=== PATIENT | female | born 1960 | race Two or more races ===

== ENCOUNTER 2024-07-24 07:52 | Emergency (ER) | payer MEDICARE, MEDICAID, SELFPAY ==
[2024-07-24 08:08] VITALS: BP 141/95; PULSE 88; RESP 22; TEMP 36.4; O2SAT 98; BMI 32.8
--- NOTE | 2024-07-24 08:14 | XR_ITS ---
Examination: PA lateral chest 2 views Technique: Upright PA lateral chest 2 views Exam date and time: July 24, 2024 0842 hrs. Comparison January 25, 2024 Indications: Difficulty breathing beginning 3 days ago. Findings: Normal heart size No pneumonia or pulmonary edema The osseous structures are intact Impression: No pneumonia or pulmonary edema
--- NOTE | 2024-07-24 08:26 | PD.EDRME ---
Rapid Medical Screening Exam RME Arrival date/time: 07/24/24 07:52 64-year-old female with history of asthma presents the emergency department complains of shortness of breath patient has history of asthma Currently patient is wheezing Chief Complaint: Shortness of Breath/Dyspnea Vital signs: Vital Signs Temperature 97.6 F 07/24/24 08:08 Pulse Rate 88 07/24/24 08:08 Respiratory Rate 22 H 07/24/24 08:08 Blood Pressure 141/95 H 07/24/24 08:08 Pulse Oximetry (%) 98 07/24/24 08:08 Oxygen Delivery Method Room Air 07/24/24 08:08
[2024-07-24] MEDS: DEXAMETHASONE SOD PHOS INJ 10 MG/ML VIAL PO (08:32)
[2024-07-24] MEDS: ALBUTEROL/IPRATROPIUM (Duoneb) RT SOL 3 ML NEBU INH (08:57)
[2024-07-24 08:58] VITALS: PULSE 70; RESP 19; O2SAT 100
[2024-07-24 09:24] LABS: Basophils # (Auto) 0.1 Thou/mm3 (0.0-0.2); Basophils % (Auto) 1 % (0-2.5); Eosinophils # (Auto) 0.4 Thou/mm3 (0.0-0.5); Eosinophils % (Auto) 6 % (0-10); Hematocrit 43.5 % (36.0-46.0); Hemoglobin 15.1 g/dL (12.0-16.0); Immature Granulocytes % (Auto) 0 % (0-0); Immature Granulocytes Auto 0.01 Thou/mm3 (0.00-0.00); Lymphocytes # (Auto) 2.4 Thou/mm3 (1.0-4.8); Lymphocytes % (Auto) 32 % (10-50); Mean Corpuscular HGB Conc 34.7 g/dl (31.0-37.0); Mean Corpuscular Hemoglobin 30.4 pg (25.0-35.0); Mean Corpuscular Volume 88 fL (80-100); Monocytes # (Auto) 0.6 Thou/mm3 (0.0-0.8); Monocytes % (Auto) 8 % (0-12); Neutrophils # (Auto) 3.9 Thou/mm3 (1.8-7.7); Neutrophils % (Auto) 53 % (37-80); Nucleated Red Blood Cell % 0 /100 WBC (0); Platelet Count 199 Thou/mm3 (140-440); RDW Standard Deviation 39.3 fL (36.4-46.3); Red Blood Count 4.96 Miln/mm3 (4.00-5.20); White Blood Count 7.4 Thou/mm3 (3.6-11.0)
[2024-07-24 09:51] LABS: B-Type Natriuretic Peptide < 20 pg/mL (0-100)
[2024-07-24 09:52] LABS: Alanine Aminotransferase 29 U/L (10-49); Albumin, Serum 4.5 gm/dL (3.4-4.8); Albumin/Globulin Ratio 1.9 (1.2-2.2); Alkaline Phosphatase 79 U/L (46-116); Anion Gap 7 (7-16); Aspartate Amino Transferase 16 U/L (0-34); BUN/Creatinine Ratio 15 Ratio (12-20); Blood Urea Nitrogen 12 mg/dL (9-23); Calcium 9.4 mg/dL (8.3-10.6); Calcium (Corrected) 9.4 mg/dL (8.5-10.1); Carbon Dioxide 26.6 mMol/L (20.0-31.0); Chloride 104 mMol/L (98-107); Creatinine (Component) 0.8 mg/dL (0.6-1.3); Estimated Creatinine Clearance 74.8 mL/min (>60); Globulin 2.4 gm/dL (2.3-3.5); Glucose 113 mg/dL (74-106); Osmolality,Calculated 276 (275-295); Potassium 4.1 mMol/L (3.4-5.1); Sodium 138 mMol/L (136-145); Total Protein 6.9 gm/dL (5.7-8.2); Troponin I < 0.020 ng/mL (0.0-0.045); eGFR > 60 See Note
--- NOTE | 2024-07-24 10:04 | EDNOTE_ITS ---
Upper Respiratory Inf. RME/HPI General Chief Complaint: Shortness of Breath/Dyspnea Stated Complaint: HARD TIME BREATHING , COUGH X 1MNTH; HX ASTHMA Time Seen by Provider: 07/24/24 10:03 Arrival date/time: 07/24/24 07:52 64-year-old female with history of asthma presents the emergency department complains of shortness of breath patient has history of asthma Currently patient is wheezing Limitations: no limitations RME / HPI RME / HPI Narrative: 07/24/24 07:52 64-year-old female with history of asthma presents the emergency department complains of shortness of breath patient has history of asthma Currently patient is wheezing Related Data Home Medications ?Medication ?Instructions ?Recorded ?Confirmed gabapentin 800 mg tablet 800 mg PO TID 07/12/20 05/14/21 losartan 100 1 tab PO QDAY 07/12/20 05/14/21 mg-hydrochlorothiazide 25 mg tablet medroxyprogesterone 2.5 mg tablet 5 mg PO QDAY 07/12/20 05/14/21 trazodone 150 mg tablet 150 mg PO HS 07/12/20 05/14/21 cyclobenzaprine 10 mg tablet 10 mg PO QDAY 05/14/21 05/14/21 Previous Rx's ?Medication ?Instructions ?Recorded ibuprofen 800 mg tablet 800 mg PO TID PRN pain #30 tabs 10/26/20 guaifenesin 100 mg/5 mL oral liquid 200 mg (10 mL) PO Q4H PRN cough 01/25/24 #473 mL benzonatate 100 mg capsule 100 mg PO TID #14 caps 07/24/24 prednisone 10 mg tablet 30 mg (3 x 10 mg) PO BID 3 days 07/24/24 #18 tabs Allergies Allergy/AdvReac Type Severity Reaction Status Date / Time No Known Allergies Allergy Verified 07/24/24 07:54 Review of Systems Review of Systems Systems Reviewed: All systems reviewed, normal except as documented Constitutional Constitutional: Reports system reviewed and no additional complaints, except as documented, Denies fever(s) and Denies headache(s) Eyes Eyes: Reports system reviewed and no additional complaints, except as documented and Denies blurry vision ENT Ears, Nose, Mouth, and Throat: Reports system reviewed and no additional complaints, except as documented, Denies headache(s), Denies nasal congestion and Denies nasal discharge Cardiovascular Cardiovascular: Reports system reviewed and no additional complaints, except as documented, Denies chest pain and Denies dyspnea Respiratory Respiratory: Reports system reviewed and no additional complaints, except as documented, Reports chest congestion, Reports cough, Denies dyspnea and Reports wheezing Gastrointestinal Gastrointestinal: Reports system reviewed and no additional complaints, except as documented and Denies abdominal pain Integumentary/Breasts Skin/Breast: Reports system reviewed and no additional complaints, except as documented and Denies rash Neurologic Neurologic: Reports system reviewed and no additional complaints, except as documented, Reports as per HPI and Denies headache(s) Allergic/Immunologic Allergic/Immunologic: Reports wheezing Past Medical History Past Medical History NEUROLOGIC: Negative Neurological Disorders or Seizures CARDIAC: Positive Cardiac Disorders and Hypertension; Negative Congestive Heart Failure RESPIRATORY: Positive Asthma; Negative Chronic Obstructive Pulmonary Disease (COPD) GASTROINTESTINAL: Positive Gastrointestinal Disorders, Hepatitis and Gastroesophageal Reflux Disease GENITOURINARY: Negative Genitourinary Disorders or Renal Disease REPRODUCTIVE: Positive Previous Pregnancies MUSCULOSKELETAL: Positive Musculoskeletal Disorders, Arthritis and Fibromyalgia; Negative Carpal Tunnel Syndrome ENDOCRINE: Negative Endocrine Disorders, Diabetes Mellitus Type 1 or Diabetes Mellitus Type 2 HEMATOLOGIC: Negative Blood Disorders PSYCHO/SOCIAL: Positive Depression and Anxiety OTHER HISTORY: Positive Autoimmune Disease, Shingles and Chicken Pox; Negative Falls, Blood Transfusions, Blood Transfusion Reaction, Anesthesia Reactions, Organ Transplant, MRSA, VRSA or Cancer Family History FAMILY HISTORY: Positive Family Psychiatric Problems, Family Respiratory Disorders, Family Cardiac Disorders, Family Gastrointestinal Problems and Family Surgery; Negative Family Cancer or Family Anesthesia Reaction Surgical History SURGICAL: Negative Cardiac Surgery, Endocrine Surgery, Ear Surgery, Eye Surgery, Throat Surgery, Abdominal Surgery, Joint Replacement, Amputation, Open Reduction Internal Fixation, Arthroscopy, Neurologic Surgery, Tubal Ligation or Organ Transplant Social History SMOKING STATUS: Light (< 1 pack/day) ED Exam General Limitations: Present no limitations General appearance: Present alert and in no apparent distress Head Head exam: Present atraumatic, normocephalic and normal inspection Eye Eye exam: Present normal appearance, PERRL and EOMI; Absent conjunctival injection ENT ENT exam: Present normal exam, normal oropharynx and mucous membranes moist Neck Neck exam: Present normal inspection, full ROM and trachea midline Chest Chest inspection: Present normal inspection and symmetric chest wall rise Respiratory Respiratory exam: Present respiratory distress and wheezes; Absent stridor, accessory muscle use or prolonged expiratory phase Cardiovascular Cardiovascular exam: Present regular rate, normal rhythm and normal heart sounds Abdominal Exam Abdominal exam: Present soft and normal bowel sounds Extremities Exam Extremities exam: Present normal inspection and full ROM Back Exam Back exam: Present normal inspection and full ROM Neurological Exam Neurological exam: Present alert, oriented X3 and CN II-XII intact Psychiatric Psychiatric exam: Present normal affect and normal mood Skin Skin exam: Present warm, dry, intact and normal color Course Quality Measures none Orders Category Date Time Status EKG (ED ONLY) *Do not use* NOW Care 07/24/24 08:14 Completed EKG (ED Only) Stat Exams 07/24/24 08:14 Ordered XR chest 2V Stat Exams 07/24/24 08:14 Completed BNP [B-Type Natriuretic Peptide] Stat Lab 07/24/24 09:12 Completed CBC Stat Lab 07/24/24 09:12 Completed Comprehensive Metabolic Panel Stat Lab 07/24/24 09:12 Completed Troponin I Stat Lab 07/24/24 09:12 Completed Albuterol/Ipratr Rt Chrissy [Duoneb Rt Chrissy] Med 07/24/24 08:14 Discontinued 3 ml INH X1 ONE Dexamethasone Inj [Decadron Inj] Med 07/24/24 08:14 Discontinued 10 mg PO X1 ONE Vital Signs Vital signs: Vital Signs Temperature 97.6 F 07/24/24 08:08 Pulse Rate 88 07/24/24 08:08 Respiratory Rate 22 H 07/24/24 08:08 Blood Pressure 141/95 H 07/24/24 08:08 Pulse Oximetry (%) 98 07/24/24 08:08 Oxygen Delivery Method Room Air 07/24/24 08:08 O2 saturation 98% room air within normal limits Procedures -ED EKG Interpretation #1: Date of EK07/24/24 Time of EK:21 Rate: 71 Interpretation: Interpreted by me EKG Impression: Normal sinus rhythm, No acute ST-T changes, PVCs, No ectopy, No ischemic changes, Normal QRS and Normal intervals Upper Respiratory Infection MDM Narrative MDM Narrative:: 64-year-old female with history of asthma presents the emergency department complains of shortness of breath patient has history of asthma Currently patient is wheezing Lab work chest x-ray EKG obtained no acute emergent findings noted At time reevaluation patient no longer has any wheezing patient reports her symptoms have improved and would like to go home Patient discharged home in no distress to follow-up with primary care doctor in the next 24 to 48 hours and for any worsening symptoms to return to the ER immediately Patient data External records reviewed:: [facility] previous records Clinical information provided by:: patient Social determinants that could affect healthcare access:: none Patient has the following chronic illnesses:: See history How is presenting disease/condition affected by chronic disease/condition?: exacerbated by Evaluation data The following diagnostics were reviewed and interpreted by me:: lab results, radiology exam(s) and EKG tracing(s) Lab and/or radiology exams considered but not ordered:: Labs and radiology, EKG obtained Interpretation Summary: Reviewed by me Medications / Prescriptions Medications or Prescriptions considered but not ordered:: Given Medication administrations:: Medication Administration History Discontinued Medications Albuterol/Ipratropium (Albuterol/Ipratropium (Duoneb) Rt Chrissy 3 Ml Nebu) 3 ml INH X1 ONE Stop: 07/24/24 08:15 Last Admin: 07/24/24 08:57 Dose: 3 ml Documented By: DARIN Dexamethasone Sodium Phosphate (Dexamethasone Sod Phos Inj 10 Mg/Ml Vial) 10 mg PO X1 ONE Stop: 07/24/24 08:15 Last Admin: 07/24/24 08:32 Dose: 10 mg Documented By: ANITRA Comments: per provider, OK TO GIVE PO. Given Consultations Consultation(s) initiated? (list below): No Diagnosis Upper Respiratory Differential Diagnosis: upper respiratory infection, sinusitis and viral infection Most likely diagnosis given after review of the tests above:: URI Admission Indicated Admission indicated?: not indicated Admission Request Was there a request for admission?: No Disposition Plan Disposition Plan: Discharge Discharge Attestation Discharge Attestation: The patient and all family members were given an opportunity to ask questions and understood the discharge instructions. Discharge instructions specifically effects, indications for sooner follow up or return to the emergency department, and the expected course of current diagnosis. Patient condition: Stable Discharge Plan Plan Patient Disposition: HOME (Self Care) Disposition Comment: Stable Prescriptions/Referrals Prescriptions/Med Rec: New prednisone 10 mg tablet 30 mg PO BID 3 Days Qty: 18 0RF benzonatate 100 mg capsule 100 mg PO TID Qty: 14 0RF No Action medroxyprogesterone 2.5 mg Tablet 5 mg PO QDAY losartan-hydrochlorothiazide 100-25 mg Tablet 1 tab PO QDAY gabapentin 800 mg Tablet 800 mg PO TID trazodone 150 mg Tablet 150 mg PO HS ibuprofen 800 mg tablet 800 mg PO TID PRN (Reason: pain) Qty: 30 0RF cyclobenzaprine 10 mg tablet 10 mg PO QDAY Patient Comments: TAKE 1 TABLET BY MOUTH AT BEDTIME NEEDED TWICE A DAY guaifenesin 100 mg/5 mL liquid 200 mg PO Q4H PRN (Reason: cough) Qty: 473 0RF Referrals: Safia Nelson PA-C [Primary Care Provider] - In 1 week Problem List Clinical Impression: Asthma with exacerbation Patient/Caregiver Discharge Instructions Education Materials: Asthma Additional Instructions: Please follow up with your primary care doctor in the next 24-48hrs for any worsening symptoms return here immediately Print Language: Danish Stand Alone Forms: [employer] Award Info., Patient Portal Info Letter PA/MARY Supervising Physician VALARIE/MARY Supervising Physician: Dr abarca
== END 2024-07-24 10:13 | disposition home or self-care (01) ==
PROVIDERS: Nurse Practitioner Primary Care; Emergency Provider Emergency Medicine; PCP Physician Assistant
DX: J45.901 Unspecified asthma with (acute) exacerbation (principal); I49.1 Atrial premature depolarization; F17.210 Nicotine dependence, cigarettes, uncomplicated; I10 Essential (primary) hypertension
CPT/HCPCS: 36415; 71046; 80053; 83880; 84484; 85025; 93005; 94640; 99283; A9270; J1100

== ENCOUNTER 2024-08-26 10:30 | Emergency (ER) | payer MEDICARE, MEDICAID, SELFPAY ==
[2024-08-26 10:41] VITALS: BP 152/93; PULSE 81; RESP 25; TEMP 36.7; O2SAT 96; BMI 33.7
--- NOTE | 2024-08-26 10:49 | EDNOTE_ITS ---
ED SOB =RME/HPI General Chief Complaint: Shortness of Breath/Dyspnea Stated Complaint: SOB X 2 months Time Seen by Provider: 08/26/24 10:52 Source: patient Arrival date/time: 08/26/24 10:30 64-year-old female with a history of asthma presents to the emergency room with a chief complaint of shortness of breath and difficulty breathing x 2 months. Patient states that for the last 2 days her symptoms have progressively gotten worse. Patient had a breathing treatment this morning at 6 AM. Mode of arrival: ambulatory Limitations: no limitations Related Data Home Medications ?Medication ?Instructions ?Recorded ?Confirmed gabapentin 800 mg tablet 800 mg PO TID 07/12/2005/14 losartan 100 1 tab PO QDAY 07/12/2005/14 mg-hydrochlorothiazide 25 mg tablet medroxyprogesterone 2.5 mg tablet 5 mg PO QDAY 1 05/14/21 trazodone 150 mg tablet 150 mg PO HS 07/12/20 cyclobenzaprine 10 mg tablet 10 mg PO QDAY 05/14/21 Previous Rx's ?Medication ?Instructions ?Recorded ibuprofen 800 mg tablet 800 mg PO TID PRN pain #30 t abs 10/26/20 guaifenesin 100 mg/5 mL oral liquid 200 mg (10 mL) PO Q4H PRN cough 01/25/24 #473 mL benzonatate 100 mg capsule 100 mg PO TID #14 caps 06/30 12/21 acetaminophen 325 mg capsule 650 mg (2 x 325 mg) PO QI D PRN 08/26/24 fever or pain 7 days #30 caps albuterol sulfate 90 mcg/actuation 2 inh inhalation Q6 H PRN shortness 08/26/24 breath activated powder inhaler of breath or wheezing #1 ea benzonatate 100 mg capsule 100 mg PO BID PRN cough #14 caps 08/26/24 Allergies Allergy/AdvReac Type Severity Reaction Status Date / Time No Known Allergies Allergy Verified 08/26/24 10:33 Review of Systems Review of Systems Systems Reviewed: All systems reviewed, normal except as documented Constitutional Constitutional: Reports system reviewed and no additional complaints, except as documented, Denies fatigue, Denies fever(s), Denies headache(s) and Denies weakness Eyes Eyes: Reports system reviewed and no additional complaints, except as documented, Denies blurry vision and Denies change in vision ENT Ears, Nose, Mouth, and Throat: Reports system reviewed and no additional complaints, except as documented, Denies otalgia, Denies headache(s), Denies nasal congestion, Denies throat swelling and Denies vertigo Cardiovascular Cardiovascular: Reports system reviewed and no additional complaints, except as documented, Denies chest pain, Reports dyspnea and Denies dyspnea on exertion Respiratory Respiratory: Reports system reviewed and no additional complaints, except as documented, Reports chest congestion, Reports cough, Reports dyspnea, Denies dyspnea on exertion and Reports wheezing Gastrointestinal Gastrointestinal: Reports system reviewed and no additional complaints, except as documented, Denies abdominal pain, Denies cramping, Denies nausea and Denies vomiting Genitourinary Genitourinary: Reports system reviewed and no additional complaints, except as documented Musculoskeletal Musculoskeletal: Reports system reviewed and no additional complaints, except as documented and Denies back pain Integumentary/Breasts Skin/Breast: Reports system reviewed and no additional complaints, except as documented and Denies wounds Neurologic Neurologic: Reports system reviewed and no additional complaints, except as docu mented, Denies confusion, Denies headache(s), Denies lack of coordination, Denies vertigo and Denies weakness Psychiatric Psychiatric: Reports system reviewed and no additional complaints, except as documented, Denies anxiety, Denies confusion, Denies depression, Denies paranoia, Denies suicidal ideation and Denies tactile hallucinations Endocrine Endocrine: Reports system reviewed and no additional complaints, except as documented and Denies fatigue Hematologic/Lymphatic Hematologic/Lymphatic: Reports system reviewed and no additional complaints, except as documented and Denies lymphadenopathy Allergic/Immunologic Allergic/Immunologic: Reports system reviewed and no additional complaints, except as documented, Denies throat swelling, Denies urticaria and Reports wheezing Past Medical History Past Medical History NEUROLOGIC: Negative Neurological Disorders or Seizures CARDIAC: Positive Cardiac Disorders and Hypertension; Negative Congestive Heart Failure RESPIRATORY: Positive Asthma; Negative Chronic Obstructive Pulmonary Disease (COPD) GASTROINTESTINAL: Positive Gastrointestinal Disorders, Hepatitis and Gastroesophageal Reflux Disease GENITOURINARY: Negative Genitourinary Disorders or Renal Disease REPRODUCTIVE: Positive Previous Pregnancies MUSCULOSKELETAL: Positive Musculoskeletal Disorders, Arthritis and Fibromyalgia; Negative Carpal Tunnel Syndrome ENDOCRINE: Negative Endocrine Disorders, Diabetes Mellitus Type 1 or Diabetes Mellitus Type 2 HEMATOLOGIC: Negative Blood Disorders PSYCHO/SOCIAL: Positive Depression and Anxiety OTHER HISTORY: Positive Autoimmune Disease, Shingles and Chicken Pox; Negative Falls, Blood Transfusions, Blood Transfusion Reaction, Anesthesia Reactions, Organ Transplant, MRSA, VRSA or Cancer Family History FAMILY HISTORY: Positive Family Psychiatric Problems, Family Respiratory Disorders, Family Cardiac Disorders, Family Gastrointestinal Problems and Family Surgery; Negative Family Cancer or Family Anesthesia Reaction Surgical History SURGICAL: Negative Cardiac Surgery, Endocrine Surgery, Ear Surgery, Eye Surgery, Throat Surgery, Abdominal Surgery, Joint Replacement, Amputation, Open Reduction Internal Fixation, Arthroscopy, Neurologic Surgery, Tubal Ligation or Organ Transplant Social History SMOKING STATUS: Former smoker ED Exam General Limitations: Present no limitations General appearance: Present alert and in no apparent distress Head Head exam: Present atraumatic Eye Eye exam: Present normal appearance, PERRL and EOMI ENT ENT exam: Present normal exam, normal oropharynx and mucous membranes moist Neck Neck exam: Present normal inspection, full ROM and trachea midline Chest Chest inspection: Present normal inspection and symmetric chest wall rise Respiratory Respiratory exam: Present normal lung sounds bilaterally and wheezes; Absent respiratory distress, stridor, accessory muscle use or prolonged expiratory phase Expanded Respiratory Exam Location: Left: wheezes, Right: wheezes and Upper: wheezes Cardiovascular Cardiovascular exam: Present regular rate, normal rhythm and normal heart sounds Abdominal Exam Abdominal exam: Present soft and normal bowel sounds Extremities Exam Extremities exam: Present normal inspection and full ROM Back Exam Back exam: Present normal inspection and full ROM Neurological Exam Neurological exam: Present alert, oriented X3 and CN II-XII intact Psychiatric Psychiatric exam: Present normal affect and normal mood Skin Skin exam: Present warm, dry, intact and normal color Course Quality Measures none Orders Category Date Time Status Bedside COVID-19 Antigen Test NOW Care 08/26/24 10:49 Active Bedside Influenza A&B Antigen Test NOW Care 08/26/24 10:49 Completed XR chest 2V Stat Exams 08/26/24 10:49 Completed Albuterol/Ipratr Rt Chrissy [Duoneb Rt Chrissy] Med 08/26/24 10:49 Discontinued 3 ml INH X1 ONE Dexamethasone Inj [Decadron Inj] Med 08/26/24 10:49 Discontinued 10 mg PO X1 ONE Vital Signs Vital signs: Vital Signs Temperature 98.0 F 08/26/24 10:41 Pulse Rate 81 08/26/24 10:41 Respiratory Rate 25 H 08/26/24 10:41 Blood Pressure 152/93 H 08/26/24 10:41 Pulse Oximetry (%) 96 08/26/24 10:41 Oxygen Delivery Method Room Air 08/26/24 10:41 O2 saturation 96% on room air Shortness of Breath / Dyspnea MDM Narrative MDM Narrative:: 64-year-old female with a history of asthma presents to the emergency room with a chief complaint of shortness of breath and difficulty breathing x 2 months. Patient states that for the last 2 days her symptoms have progressively gotten worse. Patient had a breathing treatment this morning at 6 AM. Patient is hemodynamically stable. She is nontachycardic afebrile and O2 saturation is 96% on room air Physical examination shows bilateral upper lobe wheezing. Patient tested positive for influenza A Patient was educated to follow-up with primary care provider and return to the emergency room for any evidence of worsening signs or symptoms Patient data External records reviewed:: [facility] previous records Clinical information provided by:: patient Social determinants that could affect healthcare access:: none Patient has the following chronic illnesses:: Asthma How is presenting disease/condition affected by chronic disease/condition?: exacerbated by Evaluation data The following diagnostics were reviewed and interpreted by me:: lab results and radiology exam(s) Lab and/or radiology exams considered but not ordered:: Labs and radiology exams considered and ordered Interpretation Summary: Chest x-ray-no pneumonic infiltrates Medications / Prescriptions Medications or Prescriptions considered but not ordered:: Medication given Medication administrations:: Medication Administration History Discontinued Medications Albuterol/Ipratropium (Albuterol/Ipratropium (Duoneb) Rt Chrissy 3 Ml Nebu) 3 ml INH X1 ONE Stop: 08/26/24 10:50 Last Admin: 08/26/24 11:21 Dose: 3 ml Documented By: BJ Dexamethasone Sodium Phosphate (Dexamethasone Sod Phos Inj 10 Mg/Ml Vial) 10 mg PO X1 ONE Stop: 08/26/24 10:50 Last Admin: 08/26/24 11:08 Dose: 10 mg Documented By: BD Comments: GIVEN PO Medication given Consultations Consultation(s) initiated? (list below): No Diagnosis Shortness of Breath Differential Diagnosis: acute exacerbation of chronic obstructive airways disease, community acquired pneumonia, asthma with exacerbation and other (Influenza/COVID-19) Most likely diagnosis given after review of the tests above:: Influenza A Admission Indicated Admission indicated?: not indicated Admission Request Was there a request for admission?: No Disposition Plan Disposition Plan: Discharge Discharge Attestation Discharge Attestation: The patient and all family members were given an opportunity to ask questions and understood the discharge instructions. Discharge instructions specifically effects, indications for sooner follow up or return to the emergency department, and the expected course of current diagnosis. Patient condition: Stable Discharge Plan Plan Patient Disposition: HOME (Self Care) Disposition Comment: Stable Prescriptions/Referrals Prescriptions/Med Rec: New acetaminophen 325 mg capsule 650 mg PO QID PRN (Reason: fever or pain) 7 Days Qty: 30 0RF albuterol sulfate 90 mcg/actuation aerosol powdr breath activated 2 inh inhalation Q6H PRN (Reason: shortness of breath or wheezing) Qty: 1 0RF benzonatate 100 mg capsule 100 mg PO BID PRN (Reason: cough) Qty: 14 0RF No Action medroxyprogesterone 2.5 mg Tablet 5 mg PO QDAY losartan-hydrochlorothiazide 100-25 mg Tablet 1 tab PO QDAY gabapentin 800 mg Tablet 800 mg PO TID trazodone 150 mg Tablet 150 mg PO HS ibuprofen 800 mg tablet 800 mg PO TID PRN (Reason: pain) Qty: 30 0RF cyclobenzaprine 10 mg tablet 10 mg PO QDAY Patient Comments: TAKE 1 TABLET BY MOUTH AT BEDTIME NEEDED TWICE A DAY guaifenesin 100 mg/5 mL liquid 200 mg PO Q4H PRN (Reason: cough) Qty: 473 0RF benzonatate 100 mg capsule 100 mg PO TID Qty: 14 0RF Referrals: No Primary/Family,Physician [Primary Care Provider] - In 1 week Problem List Clinical Impression: Influenza A Patient/Caregiver Discharge Instructions Education Materials: ED Influenza (Adult) Additional Instructions: Please follow-up with your primary care provider in the next 24 to 48 hours. You tested positive for influenza. The treatment for this is symptom management. Please continue to take Tylenol and ibuprofen for fever management. Please increase your oral fluid intake. For any evidence of worsening signs or symptoms please return to the emergency room immediately Print Language: New Zealander Stand Alone Forms: [employer] Award Info., Patient Portal Info Letter PA/CUSTOMER CARE TEAM COACH Supervising Physician PA/CUSTOMER CARE TEAM COACH Supervising Physician: Dr. Oviedo
--- NOTE | 2024-08-26 10:49 | XR_ITS ---
Examination: PA lateral chest 2 views Technique: Upright PA lateral chest 2 views Exam date and time: August 26, 2024 1050 hrs. Indications: Coughing fever beginning 3 days ago. Findings: Normal heart size The lungs are clear. The osseous structures are intact Impression: No active disease
[2024-08-26] MEDS: DEXAMETHASONE SOD PHOS INJ 10 MG/ML VIAL PO (11:08)
[2024-08-26 11:21] VITALS: PULSE 103; RESP 24; O2SAT 98
[2024-08-26] MEDS: ALBUTEROL/IPRATROPIUM (Duoneb) RT SOL 3 ML NEBU INH (11:21)
== END 2024-08-26 12:20 | disposition home or self-care (01) ==
PROVIDERS: Emergency Provider Emergency Medicine
DX: J10.1 Influenza due to other identified influenza virus with other respiratory manifestations (principal); J45.909 Unspecified asthma, uncomplicated; I10 Essential (primary) hypertension; Z87.891 Personal history of nicotine dependence
CPT/HCPCS: 71046; 87400; 87811; 94640; 99283; A9270; J1100

== ENCOUNTER 2024-09-14 16:22 | Emergency (ER) | payer MEDICARE, MEDICAID, SELFPAY ==
[2024-09-14] VITALS (7 sets, daily range): BP systolic 132–170; BP diastolic 90–109; PULSE 93–103; RESP 19–32; TEMP 36.5–36.8; O2SAT 92–104; BMI 34.5
--- NOTE | 2024-09-14 16:49 | XR_ITS ---
Examination: PA and lateral chest 2 views TECHNIQUE: Upright PA and lateral chest 2 views Examination date and time: September 14, 2024 1715 hours Comparison August 26, 2024 INDICATIONS: Chest pain beginning 2 weeks ago. FINDINGS: Early pneumonia left base. Normal heart size Right lung clear. IMPRESSION: Early pneumonia at left base
--- NOTE | 2024-09-14 16:49 | EKG_ITS ---
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
--- NOTE | 2024-09-14 16:49 | PD.EDRME ---
Rapid Medical Screening Exam RME Arrival date/time: 09/14/24 16:22 64-year-old female presents to the emergency department today for complaints of cough, congestion and wheezing patient reports symptoms intermittent for the last couple of months Chief Complaint: Shortness of Breath/Dyspnea Vital signs: Vital Signs Temperature 98.2 F 09/14/24 16:38 Pulse Rate 101 H 09/14/24 16:38 Respiratory Rate 32 H 09/14/24 16:38 Blood Pressure 162/90 H 09/14/24 16:38 Pulse Oximetry (%) 94 L 09/14/24 16:38 Oxygen Delivery Method Room Air 09/14/24 16:38
--- NOTE | 2024-09-14 16:51 | PD.EDRME ---
Rapid Medical Screening Exam RME Arrival date/time: 09/14/24 16:22 09/14/24 16:22 64-year-old female presents to the emergency department today for complaints of cough, congestion and wheezing patient reports symptoms intermittent for the last couple of months Chief Complaint: Shortness of Breath/Dyspnea Vital signs: Vital Signs Temperature 98.2 F 09/14/24 16:38 Pulse Rate 101 H 09/14/24 16:38 Respiratory Rate 32 H 09/14/24 16:38 Blood Pressure 162/90 H 09/14/24 16:38 Pulse Oximetry (%) 94 L 09/14/24 16:38 Oxygen Delivery Method Room Air 09/14/24 16:38 RME Narrative: 09/14/24 16:22 64-year-old female presents to the emergency department today for complaints of cough, congestion and wheezing patient reports symptoms intermittent for the last couple of months
[2024-09-14] MEDS: DEXAMETHASONE SOD PHOS INJ 10 MG/ML VIAL PO (16:58)
[2024-09-14] MEDS: ALBUTEROL/IPRATROPIUM (Duoneb) RT SOL 3 ML NEBU INH ×2 (16:58→20:23)
[2024-09-14 17:33] LABS: Basophils # (Auto) 0.1 Thou/mm3 (0.0-0.2); Basophils % (Auto) 1 % (0-2.5); Eosinophils # (Auto) 0.5 Thou/mm3 (0.0-0.5); Eosinophils % (Auto) 5 % (0-10); Hematocrit 44.6 % (36.0-46.0); Hemoglobin 15.5 g/dL (12.0-16.0); Immature Granulocytes % (Auto) 0 % (0-0); Immature Granulocytes Auto 0.03 Thou/mm3 (0.00-0.00); Lymphocytes # (Auto) 2.3 Thou/mm3 (1.0-4.8); Lymphocytes % (Auto) 24 % (10-50); Mean Corpuscular HGB Conc 34.8 g/dl (31.0-37.0); Mean Corpuscular Hemoglobin 30.5 pg (25.0-35.0); Mean Corpuscular Volume 88 fL (80-100); Monocytes # (Auto) 0.9 Thou/mm3 (0.0-0.8); Monocytes % (Auto) 10 % (0-12); Neutrophils # (Auto) 5.8 Thou/mm3 (1.8-7.7); Neutrophils % (Auto) 60 % (37-80); Nucleated Red Blood Cell % 0 /100 WBC (0); Platelet Count 205 Thou/mm3 (140-440); RDW Standard Deviation 39.5 fL (36.4-46.3); Red Blood Count 5.09 Miln/mm3 (4.00-5.20); White Blood Count 9.6 Thou/mm3 (3.6-11.0)
[2024-09-14 18:07] LABS: Alanine Aminotransferase 29 U/L (10-49); Albumin, Serum 4.5 gm/dL (3.4-4.8); Albumin/Globulin Ratio 1.7 (1.2-2.2); Alkaline Phosphatase 101 U/L (46-116); Anion Gap 9 (7-16); Aspartate Amino Transferase 23 U/L (0-34); BUN/Creatinine Ratio 14 Ratio (12-20); Bilirubin,Total 0.8 mg/dL (0.3-1.2); Blood Urea Nitrogen 13 mg/dL (9-23); Calcium 9.8 mg/dL (8.3-10.6); Calcium (Corrected) 9.8 mg/dL (8.5-10.1); Carbon Dioxide 27.2 mMol/L (20.0-31.0); Chloride 108 mMol/L (98-107); Creatinine (Component) 0.9 mg/dL (0.6-1.3); Estimated Creatinine Clearance 68.4 mL/min (>60); Globulin 2.7 gm/dL (2.3-3.5); Glucose 117 mg/dL (74-106); Osmolality,Calculated 287 (275-295); Potassium 4.2 mMol/L (3.4-5.1); Sodium 144 mMol/L (136-145); Total Protein 7.2 gm/dL (5.7-8.2); Troponin I < 0.020 ng/mL (0.0-0.045); eGFR > 60 See Note
[2024-09-14 18:08] LABS: B-Type Natriuretic Peptide < 20 pg/mL (0-100)
[2024-09-14] MEDS: ALBUTEROL RT 2.5 MG/3 ML NEBU 10 MG INH (20:46)
--- NOTE | 2024-09-14 21:04 | PD.ASTHM ---
ED Asthma RME/HPI General Chief Complaint: Shortness of Breath/Dyspnea Stated Complaint: DYSPNEA, ASTHMA X 2 MOS Time Seen by Provider: 09/14/24 20:42 Arrival date/time: 09/14/24 16:22 RME / HPI RME / HPI Narrative: 64-year-old female presents to the emergency department today for complaints of cough, congestion and wheezing patient reports symptoms intermittent for the last couple of months. Patient has been using her albuterol, with no relief. Patient denies any fever. Denies any other complaints or medications taken prior to arrival. Related Data Home Medications ?Medication ?Instructions ?Recorded ?Confirmed gabapentin 800 mg tablet 800 mg PO TID 07/12/20 05/14/21 losartan 100 1 tab PO QDAY 07/12/20 05/14/21 mg-hydrochlorothiazide 25 mg tablet medroxyprogesterone 2.5 mg tablet 5 mg PO QDAY 07/12/20 05/14/21 trazodone 150 mg tablet 150 mg PO HS 07/12/20 05/14/21 cyclobenzaprine 10 mg tablet 10 mg PO QDAY 05/14/21 05/14/21 Previous Rx's ?Medication ?Instructions ?Recorded ibuprofen 800 mg tablet 800 mg PO TID PRN pain #30 tabs 10/26/20 guaifenesin 100 mg/5 mL oral liquid 200 mg (10 mL) PO Q4H PRN cough 01/25/24 #473 mL benzonatate 100 mg capsule 100 mg PO TID #14 caps 07/24/24 albuterol sulfate 2.5 mg/0.5 mL 5 mg inhalation Q6H PRN shortness 08/26/24 solution for nebulization of breath or wheezing #30 ea albuterol sulfate 90 mcg/actuation 2 inh inhalation Q6H PRN shortness 08/26/24 breath activated powder inhaler of breath or wheezing #1 ea benzonatate 100 mg capsule 100 mg PO BID PRN cough #14 caps 08/26/24 albuterol sulfate 90 mcg/actuation 2 inh inhalation Q8H PRN shortness 09/14/24 aerosol inhaler of breath or wheezing #8.5 grams ipratropium 0.5 mg-albuterol 3 mg 3 ml inhalation Q6H PRN shortness 09/14/24 (2.5 mg base)/3 mL nebulization of breath #90 mL soln levofloxacin 500 mg tablet 500 mg PO Q24H 7 days #7 tabs 09/14/24 prednisone 50 mg tablet 50 mg PO QDAY #7 tabs 09/14/24 Allergies Allergy/AdvReac Type Severity Reaction Status Date / Time No Known Allergies Allergy Verified 09/14/24 16:25 Review of Systems Review of Systems Narrative Review of Systems: Review of system reviewed and within normal limits except mentioned in HPI ED Exam Narrative Physical exam: VITAL SIGNS: Reviewed. GENERAL APPEARANCE: Alert and interactive, follows commands, no acute distress, HEAD AND FACE: Non-traumatic. ENT: PERRL, pink conjunctivitis, eyelid no trauma, Mucous membrane moist. NECK: Supple, nontender, no nuchal rigidity. CHEST: No tenderness, no crepitus, no paradoxical movement, no retractions. LUNGS: Clear, well ventilated, symmetric, no rales,+ wheezing, no ronchi, no stridor, good breath sounds bilaterally. HEART: Regular rate, regular rhythm, no murmur, no gallops. ABDOMEN: Soft, positive bowel sounds, nondistended, no guarding, nontender, no rebound, no masses, RECTAL: Deferred. GENITAL: Deferred. NEUROLOGICAL: Gross motor function intact sensory function intact, Appropriate for age. MUSCULOSKELETAL: low back nontender, full range of motion. EXTREMITIES: Nontender, full range of motion. SKIN: Color pink, dry, no rash, no lacerations, no abrasions, no contusions. LYMPHATICS: Deferred. Course Quality Measures none Orders Category Date Time Status EKG (ED ONLY) *Do not use* NOW Care 09/14/24 16:49 Completed EKG (ED Only) Stat Exams 09/14/24 16:49 Draft XR chest 2V Stat Exams 09/14/24 16:49 Completed BNP [B-Type Natriuretic Peptide] Stat Lab 09/14/24 17:11 Completed CBC Stat Lab 09/14/24 17:11 Completed Comprehensive Metabolic Panel Stat Lab 09/14/24 17:11 Completed Influenza A & B Rapid Panel Stat Lab 09/14/24 16:50 Ordered Troponin I Stat Lab 09/14/24 17:11 Completed ALBUTEROL RT 3ml [Proventil Rt 3ml] Med 09/14/24 20:40 Discontinued 10 mg INH X1 ONE Albuterol/Ipratr Rt Chrissy [Duoneb Rt Chrissy] Med 09/14/24 16:49 Discontinued 3 ml INH X1 ONE Albuterol/Ipratr Rt Chrissy [Duoneb Rt Chrissy] Med 09/14/24 19:41 Discontinued 3 ml INH X1 ONE Dexamethasone Inj [Decadron Inj] Med 09/14/24 16:49 Discontinued 10 mg PO X1 ONE Levofloxacin [Levaquin] Med 09/14/24 21:02 Once 500 mg PO X1 ONE Vital Signs Vital signs: Vital Signs Temperature 98.2 F 09/14/24 16:38 Pulse Rate 101 H 09/14/24 16:38 Respiratory Rate 32 H 09/14/24 16:38 Blood Pressure 162/90 H 09/14/24 16:38 Pulse Oximetry (%) 94 L 09/14/24 16:38 Oxygen Delivery Method Room Air 09/14/24 16:38 Asthma MDM Narrative [facility] Narrative:: 64-year-old female presents to the emergency department today for complaints of cough, congestion and wheezing patient reports symptoms intermittent for the last couple of months. Patient has been using her albuterol, with no relief. Patient denies any fever. Denies any other complaints or medications taken prior to arrival. Patient's workup today is significant for mild pneumonia on chest x-ray. Laboratory workup came back unremarkable. EKG showed sinus rhythm, ventricular rate of 94 bpm, no ST segment elevation or depression noted. Patient was given Decadron, albuterol, and DuoNeb with significant improvement of symptoms. Patient was also given Levaquin in the emergency room. Prior to discharge, patient was noted to be satting 96% on room air. Patient data External records reviewed:: None Clinical information provided by:: patient Social determinants that could affect healthcare access:: none Patient has the following chronic illnesses:: None How is presenting disease/condition affected by chronic disease/condition?: no chronic disease Evaluation data The following diagnostics were reviewed and interpreted by me:: lab results, radiology exam(s) and EKG tracing(s) Lab and/or radiology exams considered but not ordered:: None Interpretation Summary: See results in MDM Medications / Prescriptions Medications or Prescriptions considered but not ordered:: None Medication administrations:: Medication Administration History Discontinued Medications Albuterol (Albuterol Rt 2.5 Mg/3 Ml Nebu) 10 mg INH X1 ONE Stop: 09/14/24 20:41 Last Admin: 09/14/24 20:46 Dose: 10 mg Documented By: BRITTANY Albuterol/Ipratropium (Albuterol/Ipratropium (Duoneb) Rt Chrissy 3 Ml Nebu) 3 ml INH X1 ONE Stop: 09/14/24 16:50 Last Admin: 09/14/24 16:58 Dose: 3 ml Documented By: TERRI Albuterol/Ipratropium (Albuterol/Ipratropium (Duoneb) Rt Chrissy 3 Ml Nebu) 3 ml INH X1 ONE Stop: 09/14/24 19:42 Last Admin: 09/14/24 20:23 Dose: 3 ml Documented By: BRITTANY Dexamethasone Sodium Phosphate (Dexamethasone Sod Phos Inj 10 Mg/Ml Vial) 10 mg PO X1 ONE Stop: 09/14/24 16:50 Last Admin: 09/14/24 16:58 Dose: 10 mg Documented By: Albuterol DuoNeb, Decadron, Levaquin Consultations Consultation(s) initiated? (list below): No Consultation #1 (Physician, Specialty, Details): Stable Diagnosis Differential diagnosis asthma: Acute exacerbation, Acute asthmatic bronchitis and Pneumonia Most likely diagnosis given after review of the tests above:: Pneumonia, asthma with acute exacerbation Admission Indicated Admission indicated?: not indicated Admission Request Was there a request for admission?: No Disposition Plan Disposition Plan: Discharge Discharge Attestation Discharge Attestation: The patient and all family members were given an opportunity to ask questions and understood the discharge instructions. Discharge instructions specifically effects, indications for sooner follow up or return to the emergency department, and the expected course of current diagnosis. Patient condition: Stable Discharge Plan Plan Patient Disposition: HOME (Self Care) Disposition Comment: Stable Prescriptions/Referrals Prescriptions/Med Rec: New levofloxacin 500 mg tablet 500 mg PO Q24H 7 Days Qty: 7 0RF prednisone 50 mg tablet 50 mg PO QDAY Qty: 7 0RF albuterol sulfate 90 mcg/actuation HFA aerosol inhaler 2 inh inhalation Q8H PRN (Reason: shortness of breath or wheezing) Qty: 8.5 0RF ipratropium-albuterol 0.5 mg-3 mg(2.5 mg base)/3 mL solution for nebulization 3 ml inhalation Q6H PRN (Reason: shortness of breath) Qty: 90 0RF No Action medroxyprogesterone 2.5 mg Tablet 5 mg PO QDAY losartan-hydrochlorothiazide 100-25 mg Tablet 1 tab PO QDAY gabapentin 800 mg Tablet 800 mg PO TID trazodone 150 mg Tablet 150 mg PO HS ibuprofen 800 mg tablet 800 mg PO TID PRN (Reason: pain) Qty: 30 0RF cyclobenzaprine 10 mg tablet 10 mg PO QDAY Patient Comments: TAKE 1 TABLET BY MOUTH AT BEDTIME NEEDED TWICE A DAY albuterol sulfate 90 mcg/actuation aerosol powdr breath activated 2 inh inhalation Q6H PRN (Reason: shortness of breath or wheezing) Qty: 1 0RF benzonatate 100 mg capsule 100 mg PO BID PRN (Reason: cough) Qty: 14 0RF albuterol sulfate 2.5 mg/0.5 mL solution for nebulization 5 mg inhalation Q6H PRN (Reason: shortness of breath or wheezing) Qty: 30 0RF guaifenesin 100 mg/5 mL liquid 200 mg PO Q4H PRN (Reason: cough) Qty: 473 0RF benzonatate 100 mg capsule 100 mg PO TID Qty: 14 0RF Referrals: No Primary/Family,Physician [Primary Care Provider] - In 1 week Problem List Clinical Impression: Asthma with exacerbation, Pneumonia Impression comment: Thank you for the opportunity for serving you today. You are stable for discharged . You are advised to: Follow-up with your PCP in 1 to 2 days Return to ED for worsening of symptoms Increase oral fluids Take medication as prescribed Patient/Caregiver Discharge Instructions Education Materials: Asthma Additional Instructions: Thank you for the opportunity for serving you today. You are stable for discharged . You are advised to: Follow-up with your PCP in 1 to 2 days Return to ED for worsening of symptoms Increase oral fluids Take medication as prescribed Print Language: Latvian Stand Alone Forms: [employer] Award Info., Patient Portal Info Letter PA/MARY Supervising Physician PA/MARY Supervising Physician: MD Jaison
[2024-09-14] MEDS: LEVOFLOXACIN 250 MG TABLET 500 MG PO (22:33)
[2024-09-14] MEDS: predniSONE 20 MG TABLET 60 MG PO (22:37)
== END 2024-09-14 22:41 | disposition home or self-care (01) ==
PROVIDERS: Nurse Practitioner Primary Care; Emergency Provider Emergency Medicine
DX: J45.901 Unspecified asthma with (acute) exacerbation (principal); J18.9 Pneumonia, unspecified organism
CPT/HCPCS: 36415; 71046; 80053; 83880; 84484; 85025; 87502; 93005; 94640; 94644; 99284; A9270; J1100; J7512

== ENCOUNTER 2024-09-16 18:43 | Emergency (ER) | payer MEDICARE, MEDICAID, SELFPAY ==
[2024-09-16 18:46] VITALS: BMI 31.8
--- NOTE | 2024-09-16 18:51 | EKG_ITS ---
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: : 1960 Requested By: Raman Carrasco Order Number: [id number] Reading MD: Raman Carrasco Measurements Intervals [place] Rate: 92 P: 59 [place]: 143 QRS: -49 QRSD: 82 T: 3 QT: 317 QTc: 392 Interpretive Statements SINUS RHYTHM LOW QRS VOLTAGE IN PRECORDIAL LEADS [QRS DEFLECTION < 1.0 mV IN CHEST LEADS] LEFT ANTERIOR FASCICULAR BLOCK [QRS AXIS <= -45, QR IN I, RS IN II] POSSIBLE ANTERIOR MYOCARDIAL INFARCTION , PROBABLY OLD [30 ms Q WAVE IN V3/V4, OR R < 0.2 mV IN V4] Compared to ECG 09/14/2024 16:54:11 Low QRS voltage now present Myocardial infarct finding now present /store/S0/[id number]/[id number].pdf
[2024-09-16 19:39] VITALS: BP 155/103; BP 165/112; PULSE 87; RESP 24; TEMP 36.8; O2SAT 97
--- NOTE | 2024-09-16 19:56 | XR_ITS ---
Examination: Abdomen sonogram, Limited Date and time of exam: September 16, 2024 11:12 PM INDICATIONS: Onset right upper abdominal pain beginning one month ago Technique: Real-time mauricio scale transabdominal sonographic images of the upper abdomen obtained. Findings: Normal gallbladder Normal common bile duct 0.3 cm Pancreatic head 2.2 cm Liver 13.6 cm upper right lobe cyst 13 mm Normal hepatopedal portal venous flow Patent IVC IMPRESSION: Normal gallbladder. Small benign liver cyst
--- NOTE | 2024-09-16 19:56 | XR_ITS ---
Examination: CT brain head without contrast. 2-D sagittal coronal reconstructions Date and time of exam:September 17, 2019 5:10 PM INDICATIONS: Patient fell today with injury to the head, head pain CTDI: vol (mGy):51.1 DLP: (mGycm):1027 Technique: Multiple CT axial sections of the brain have been obtained, 5 mm slice thickness. Contrast has not been administered. 2-D sagittal, coronal reconstructions have been obtained Low dose protocols were performed. One or more of the following dose reduction techniques were used; automated exposure control, adjustment of the mA and/or KV according to patient size, use of iterative reconstruction technique. Findings: No significant ventricular enlargement. 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 No mass effect or midline shift Basal cisterns are not remarkable. Fourth ventricle is midline. Cranial vault intact. Impression: Negative for acute hemorrhage, mass effect or midline shift
--- NOTE | 2024-09-16 19:56 | XR_ITS ---
Examination: CT cervical spine without contrast 2-D sagittal reconstructions 2-D coronal reconstructions 3-D reconstructions. Exam date and time:September 16, 2024 10:00 PM INDICATIONS: Patient fell today with a few the neck, neck pain CTDI:vol (mGy) 15.9 DLP: (mGycm) 331 Technique: Multiple 2 mm axial sections of the cervical spine have been obtained. The coronal and sagittal reconstructions have been obtained. 3-D reconstructions have been obtained. Low dose protocols were performed. One or more of the following dose reduction techniques were used; automated exposure control, adjustment of the mA and/or KV according to patient size, use of iterative reconstruction technique. Findings: Axial sections demonstrate intact base of the skull. C1 exhibit satisfactory relationship to the odontoid. No acute cervical vertebral body fracture seen. Alignment posterior spinous processes satisfactory. Impression: No acute cervical fracture.
--- NOTE | 2024-09-16 19:57 | EDRME_ITS ---
Rapid Medical Screening Exam [facility] Arrival date/time: 09/16/24 18:43 64F with history of asthma and HTN presents to ED with 1 day of RUQ/epigastric pain severe enough to cause her to faint. Patient states she hit her head and bit her tongue. Patient was here recently for asthma exacerbation and was also told she had PNA. Chief Complaint: Abdominal Pain Vital signs: Vital Signs Temperature 98.3 F 09/16/24 19:39 Pulse Rate 87 09/16/24 19:39 Respiratory Rate 24 H 09/16/24 19:39 Blood Pressure 165/112 H 09/16/24 19:39 Pulse Oximetry (%) 97 09/16/24 19:39 Oxygen Delivery Method Room Air 09/16/24 19:39
--- NOTE | 2024-09-16 20:06 | XR_ITS ---
Examination: AP chest single view TECHNIQUE: AP portable upright chest single view Examination time: September 16, 2024 at 1926 hours Comparison September 14, 2024 INDICATIONS: Difficulty breathing chest pain today. FINDINGS: Mild pneumonia left base Normal heart size Right lung clear IMPRESSION: Mild pneumonia left base
--- NOTE | 2024-09-16 20:17 | PD.EDABDPN ---
ED Abdominal Pain RME/HPI General Chief Complaint: Abdominal Pain Stated complaint: EPIGASTRIC PAIN, FAINTED FROM THE PAIN Time seen by provider: 09/16/24 20:12 Arrival date/time: 09/16/24 18:43 RME / HPI RME / HPI narrative: 09/16/24 18:43 64F with history of asthma and HTN presents to ED with 1 day of RUQ/epigastric pain severe enough to cause her to faint. Patient states she hit her head and bit her tongue. Patient was here recently for asthma exacerbation and was also told she had PNA. -------- This section includes all my notes and documentations, including HPI, PE, and ED course. Tony Barakat MD HPI: 64-year-old female here with multiple concerns. Just prior to arrival, she fainted while sitting down. Fell forward and landed on her face. She also reports several days of abdominal pain. And about a week history of worsening cough, productive cough, purulent sputum, and dyspnea. Currently, no headache or dizziness. No speech or vision impairment. No chest pain. No loss of power in arms or legs. No other complaints. ROS: All negative except as documented in HPI. Physical Exam: General: Alert and oriented. No acute distress when remaining still. Eyes: Conjunctivae and lids clear. PERRL. EOMI. ENT: No nasal congestion. Neck: Supple. No tenderness. Heart: RRR. Lungs: No respiratory distress. Good air movement. No rhonchi, wheezing, rales. Abdomen: Soft with equivocal diffuse tenderness, difficult to localize. Legs: No clubbing, cyanosis, edema. Skin: Warm and dry. Neuro: Alert and oriented X 3. Cranial nerves II to XII grossly normal. No peripheral motor deficits. Musculoskeletal: All major joints are nontender with no limited range of motion. I reviewed all diagnostic test results. My interpretation of the EKG is sinus rhythm with no acute ST?T changes. My interpretation of the chest x-ray is infiltrates. My review of the CT reports is no acute injury. My review of the gallbladder US report is no acute findings. Blood tests and urine tests remarkable for WBC 16.5. COVID/influenza negative. At this point, diagnoses include pneumonia. Treatment here included Duoneb, Prednisone, Zofran, Morphine, Methylprednisolone, Toradol, Rocephin, Azithromycin, and NS IVF. Significant improvement noted. Recommended a trial of outpatient treatment. Based on my best medical judgment, made decision no further evaluation or treatment indicated at this time. Patient understands and agrees to the discharge instructions customized and printed, see below. Discharge instructions from Dr. Barakat: --After extensive evaluation, there is no very serious injury. Such as brain injury or broken neck or internal organ injury. You have pneumonia. --No physical exertion for 3 days to help rest the lungs. ?No smoking or exposure to smoking or pets or dust or cold air. --Zithromax and cefdinir to kill the germs causing the pneumonia. --Prednisone to help decrease the swelling in the airways. --Albuterol 2 puffs every 4-6 hours for 3 days to help keep the airways open. Then as needed for cough or shortness of breath. --Tylenol with codeine for severe cough for severe pain. --Zofran for nausea/vomiting. Clear liquid diet for 24 hours. Advance slowly as tolerated. --See a private doctor on 09/19/2024 for recheck and further care. Ask to review all test results and official radiology reports, to make sure you receive all necessary follow-ups and monitoring. --Seek immediate medical care with worsening or with any concerns. Tony Barakat MD Related Data Home Medications ?Medication ?Instructions ?Recorded ?Confirmed gabapentin 800 mg tablet 800 mg PO TID 07/12/20 05/14/21 losartan 100 1 tab PO QDAY 07/12/20 05/14/21 mg-hydrochlorothiazide 25 mg tablet medroxyprogesterone 2.5 mg tablet 5 mg PO QDAY 07/12/20 05/14/21 trazodone 150 mg tablet 150 mg PO HS 07/12/20 05/14/21 cyclobenzaprine 10 mg tablet 10 mg PO QDAY 05/14/21 05/14/21 Previous Rx's ?Medication ?Instructions ?Recorded ibuprofen 800 mg tablet 800 mg PO TID PRN pain #30 tabs 10/26/20 guaifenesin 100 mg/5 mL oral liquid 200 mg (10 mL) PO Q4H PRN cough 01/25/24 #473 mL benzonatate 100 mg capsule 100 mg PO TID #14 caps 07/24/24 albuterol sulfate 2.5 mg/0.5 mL 5 mg inhalation Q6H PRN shortness 08/26/24 solution for nebulization of breath or wheezing #30 ea albuterol sulfate 90 mcg/actuation 2 inh inhalation Q6H PRN shortness 08/26/24 breath activated powder inhaler of breath or wheezing #1 ea benzonatate 100 mg capsule 100 mg PO BID PRN cough #14 caps 08/26/24 albuterol sulfate 90 mcg/actuation 2 inh inhalation Q8H PRN shortness 09/14/24 aerosol inhaler of breath or wheezing #8.5 grams ipratropium 0.5 mg-albuterol 3 mg 3 ml inhalation Q6H PRN shortness 09/14/24 (2.5 mg base)/3 mL nebulization of breath #90 mL soln levofloxacin 500 mg tablet 500 mg PO Q24H 7 days #7 tabs 09/14/24 prednisone 50 mg tablet 50 mg PO QDAY #7 tabs 09/14/24 acetaminophen 300 mg-codeine 30 mg 2 tab PO Q8H PRN pain #20 tabs 09/17/24 tablet albuterol sulfate 90 mcg/actuation 2 puff inhalation Q6H PRN 09/17/24 aerosol inhaler shortness of breath or wheezing #8.5 grams azithromycin 500 mg tablet 500 mg PO QDAY 3 days #3 tabs 09/17/24 (Zithromax TRI-JANELL) cefdinir 300 mg capsule 300 mg PO BID #14 caps 09/17/24 ondansetron 4 mg disintegrating 4 mg PO TID PRN nausea and 09/17/24 tablet vomiting 30 days #10 tabs prednisone 20 mg tablet 40 mg PO BID 3 days #12 tabs 09/17/24 Allergies Allergy/AdvReac Type Severity Reaction Status Date / Time No Known Allergies Allergy Verified 09/16/24 18:45 Review of Systems Review of Systems Systems Reviewed: All systems reviewed, normal except as documented Past Medical History Past Medical History NEUROLOGIC: Negative Neurological Disorders or Seizures CARDIAC: Positive Cardiac Disorders and Hypertension; Negative Congestive Heart Failure RESPIRATORY: Positive Asthma; Negative Chronic Obstructive Pulmonary Disease (COPD) GASTROINTESTINAL: Positive Gastrointestinal Disorders, Hepatitis and Gastroesophageal Reflux Disease GENITOURINARY: Negative Genitourinary Disorders or Renal Disease REPRODUCTIVE: Positive Previous Pregnancies MUSCULOSKELETAL: Positive Musculoskeletal Disorders, Arthritis and Fibromyalgia; Negative Carpal Tunnel Syndrome ENDOCRINE: Negative Endocrine Disorders, Diabetes Mellitus Type 1 or Diabetes Mellitus Type 2 HEMATOLOGIC: Negative Blood Disorders PSYCHO/SOCIAL: Positive Depression and Anxiety OTHER HISTORY: Positive Autoimmune Disease, Shingles and Chicken Pox; Negative Falls, Blood Transfusions, Blood Transfusion Reaction, Anesthesia Reactions, Organ Transplant, MRSA, VRSA or Cancer Family History FAMILY HISTORY: Positive Family Psychiatric Problems, Family Respiratory Disorders, Family Cardiac Disorders, Family Gastrointestinal Problems and Family Surgery; Negative Family Cancer or Family Anesthesia Reaction Surgical History SURGICAL: Negative Cardiac Surgery, Endocrine Surgery, Ear Surgery, Eye Surgery, Throat Surgery, Abdominal Surgery, Joint Replacement, Amputation, Open Reduction Internal Fixation, Arthroscopy, Neurologic Surgery, Tubal Ligation or Organ Transplant Social History SMOKING STATUS: Current some day smoker ED Exam Narrative Physical exam: As noted in HPI. Course Course Course Narrative: CXR is ordered to r/o pneumothorax. Quality Measures none Orders Category Date Time Status Bedside COVID-19 Antigen Test NOW Care 09/16/24 20:23 Completed Bedside Influenza A&B Antigen Test NOW Care 09/16/24 20:[address] Screening NOW Care 09/16/24 20:25 Completed EKG (ED ONLY) *Do not use* NOW Care 09/16/24 18:51 Completed Saline [Insert IV] NOW Care 09/16/24 20:23 Completed Straight [In and Out Catheter] X1 Care 09/16/24 20:[address] angio chest abdomen pelvis Stat Exams 09/16/24 20:[address] cervical spine wo con Stat Exams 09/16/24 19:[address] facial bones wo con Stat Exams 09/16/24 20:[address] head/brain wo con Stat Exams 09/16/24 19:56 Completed EKG (ED Only) Stat Exams 09/16/24 18:51 Draft US gall bladder Stat Exams 09/16/24 19:56 Completed XR chest 1V portable Stat Exams 09/16/24 20:06 Completed Amylase Stat Lab 09/16/24 21:02 Completed B-Type Natriuretic Peptide Stat Lab 09/16/24 21:02 Completed Blood Culture (Lab) Stat Lab 09/16/24 21:14 Results CBC Stat Lab 09/16/24 21:02 Completed CRP [C-Reactive Protein] Stat Lab 09/16/24 21:02 Completed Comprehensive Metabolic Panel Stat Lab 09/16/24 21:02 Completed D-Dimer Stat Lab 09/16/24 21:02 Completed ESR [Sed Rate (ESR)] Stat Lab 09/16/24 21:02 Completed Free T4 (Free Thyroxine) Stat Lab 09/16/24 21:02 Completed Lactate (Lactic Acid) Stat Lab 09/16/24 21:02 Completed Lactic Acid, 3 HR Stat Lab 09/17/24 01:02 Completed Lipase Stat Lab 09/16/24 21:02 Completed Magnesium Stat Lab 09/16/24 21:02 Completed Procalcitonin Stat Lab 09/16/24 21:02 Completed TSH [Thyroid Stimulating Hormone] Stat Lab 09/16/24 21:02 Completed Troponin I Stat Lab 09/16/24 21:02 Completed UA, C/S IF [Urinalysis, C/S if Indicated] Stat Lab 09/16/24 22:17 Completed Albuterol/Ipratr Rt Chrissy [Duoneb Rt Chrissy] Med 09/16/24 19:56 Discontinued 6 ml INH X1 ONE Azithromycin Po [Zithromax PO] Med 09/17/24 00:26 Discontinued 500 mg PO X1 ONE Ketorolac Inj [Toradol Inj] Med 09/16/24 20:24 Discontinued 30 mg IVP X1 ONE MethylPREDNISolone.* [SoluMEDROL Inj] Med 09/16/24 20:24 Discontinued 125 mg IVP X1 ONE Morphine Inj Med 09/16/24 22:39 Discontinued 2 mg IVP X1 ONE Morphine Inj Med 09/16/24 20:24 Discontinued 5 mg IVP X1 ONE Ondansetron Inj [Zofran Inj] Med 09/16/24 20:24 Discontinued 4 mg IV X1 ONE Sodium Chloride 0.9% 1000 ml [Ns] 1,000 ml Med 09/16/24 20:24 Discontinued IV 999 mls/hr cefTRIAXone [Rocephin] 1,000 mg Med 09/17/24 00:26 Discontinued SODIUM CHLORIDE 0.9% (Popper) [Ns 0.9% (P)] 50 ml IV X1 predniSONE Med 09/16/24 19:56 Discontinued 60 mg PO X1 ONE Vital Signs Vital signs: Vital Signs Temperature 98.3 F 09/16/24 19:39 Pulse Rate 87 09/16/24 19:39 Respiratory Rate 24 H 09/16/24 19:39 Blood Pressure 165/112 H 09/16/24 19:39 Pulse Oximetry (%) 97 09/16/24 19:39 Oxygen Delivery Method Room Air 09/16/24 19:39 Abdominal Pain MDM MDM Narrative MDM Narrative:: Scribe Attestation: 09/16/24 - Roxy Corona am scribing for and in the presence of Dr. Barakat. Patient data External records reviewed:: [facility] previous records (Per chart review, patient was seen here on 09/14/24 for asthma with exacerbation.) Clinical information provided by:: patient Social determinants that could affect healthcare access:: none Patient has the following chronic illnesses:: HTN, GERD How is presenting disease/condition affected by chronic disease/condition?: uneffected by Evaluation data The following diagnostics were reviewed and interpreted by me:: lab results, radiology exam(s) and EKG tracing(s) (My interpretation of the EKG is: Sinus rhythm (92 bpm) with nonspecific ST-T changes. oTny Barakat MD) Lab and/or radiology exams considered but not ordered:: none Interpretation Summary: Pneumonia Medications / Prescriptions Medications or Prescriptions considered but not ordered:: none Medication administrations:: Medication Administration History Discontinued Medications Albuterol/Ipratropium (Albuterol/Ipratropium (Duoneb) Rt Chrissy 3 Ml Nebu) 6 ml INH X1 ONE Stop: 09/16/24 19:57 Last Admin: 09/16/24 20:56 Dose: 6 ml Documented By: BRITTANY Azithromycin (Azithromycin 250 Mg Tablet) 500 mg PO X1 ONE Stop: 09/17/24 00:27 Last Admin: 09/17/24 00:45 Dose: 500 mg Documented By: MANDA Sodium Chloride (Ns) 1,000 mls @ 999 mls/hr IV .Q1H1M ONE Stop: 09/16/24 21:24 Last Infusion: 09/16/24 21:48 Dose: Infused Documented By: Admin: 09/16/24 20:47 Dose: 999 mls/hr Documented By: AUGUSTINE Ceftriaxone Sodium 1,000 mg/ (Sodium Chloride) 50 mls @ 100 mls/hr IV X1 ONE Stop: 09/17/24 00:55 Last Admin: 09/17/24 00:45 Dose: 100 mls/hr Documented By: MANDA Ketorolac Tromethamine (Ketorolac Inj 30 Mg/Ml Vial) 30 mg IVP X1 ONE Stop: 09/16/24 20:25 Last Admin: 09/16/24 20:47 Dose: 30 mg Documented By: EE Methylprednisolone Sodium Succinate (Methylprednisolone Sod Succ 62.5 Mg/Ml 2ml Vial) 125 mg IVP X1 ONE Stop: 09/16/24 20:25 Last Admin: 09/16/24 20:46 Dose: 125 mg Documented By: EE Morphine Sulfate (Morphine Sulf Inj 10 Mg/Ml Vial) 5 mg IVP X1 ONE Stop: 09/16/24 20:25 Last Admin: 09/16/24 20:46 Dose: 5 mg Documented By: EE Morphine Sulfate (Morphine Sulf Inj 10 Mg/Ml Vial) 2 mg IVP X1 ONE Stop: 09/16/24 22:40 Last Admin: 09/17/24 00:27 Dose: 2 mg Documented By: LB Ondansetron HCl (Ondansetron Inj 2 Mg/Ml Inj 2 Ml) 4 mg IV X1 ONE; Protocol Stop: 09/16/24 20:25 Last Admin: 09/16/24 20:47 Dose: 4 mg Documented By: EE Prednisone (Prednisone 20 Mg Tablet) 60 mg PO X1 ONE Stop: 09/16/24 19:57 Last Admin: 09/16/24 20:47 Dose: Not Given Documented By: EE Non-Admin Reason: Cancelled by Provider Duoneb, Prednisone, Zofran, Morphine, Methylprednisolone, Toradol, Rocephin, Azithromycin, NS IVF Consultations Consultation(s) initiated? (list below): No Diagnosis Differential diagnosis abdominal pain: acute appendicitis, calculus of kidney, diverticulitis, pancreatitis, small bowel obstruction and other (CVA, brain tumor, [employer] injury, ID) Most likely diagnosis given after review of the tests above:: Pneumonia Admission Indicated Admission indicated?: not indicated Explain why admission is indicated or not indicated:: No criteria for admissions. Admission Request Was there a request for admission?: No Disposition Plan Disposition Plan: Discharge Discharge Attestation Discharge Attestation: The patient and all family members were given an opportunity to ask questions and understood the discharge instructions. Discharge instructions specifically effects, indications for sooner follow up or return to the emergency department, and the expected course of current diagnosis. Patient condition: Stable Discharge Plan Plan Patient Disposition: HOME (Self Care) Prescriptions/Referrals Prescriptions/Med Rec: New prednisone 20 mg tablet 40 mg PO BID 3 Days Qty: 12 0RF Taper: Prednisone Taper 20 mg DAILY for 2 Days and 0 Hour 10 mg DAILY for 2 Days and 0 Hour 5 mg DAILY for 7 Days and 0 Hour acetaminophen-codeine 300-30 mg tablet 2 tab PO Q8H MDD 6 PRN (Reason: pain) Qty: 20 0RF albuterol sulfate 90 mcg/actuation HFA aerosol inhaler 2 puff inhalation Q6H PRN (Reason: shortness of breath or wheezing) Qty: 8.5 0RF ondansetron 4 mg tablet,disintegrating 4 mg PO TID PRN (Reason: nausea and vomiting) 30 Days Qty: 10 0RF cefdinir 300 mg capsule 300 mg PO BID Qty: 14 0RF azithromycin [Zithromax TRI-JANELL] 500 mg tablet 500 mg PO QDAY 3 Days Qty: 3 0RF No Action medroxyprogesterone 2.5 mg Tablet 5 mg PO QDAY losartan-hydrochlorothiazide 100-25 mg Tablet 1 tab PO QDAY gabapentin 800 mg Tablet 800 mg PO TID trazodone 150 mg Tablet 150 mg PO HS ibuprofen 800 mg tablet 800 mg PO TID PRN (Reason: pain) Qty: 30 0RF cyclobenzaprine 10 mg tablet 10 mg PO QDAY Patient Comments: TAKE 1 TABLET BY MOUTH AT BEDTIME NEEDED TWICE A DAY albuterol sulfate 90 mcg/actuation aerosol powdr breath activated 2 inh inhalation Q6H PRN (Reason: shortness of breath or wheezing) Qty: 1 0RF benzonatate 100 mg capsule 100 mg PO BID PRN (Reason: cough) Qty: 14 0RF albuterol sulfate 2.5 mg/0.5 mL solution for nebulization 5 mg inhalation Q6H PRN (Reason: shortness of breath or wheezing) Qty: 30 0RF levofloxacin 500 mg tablet 500 mg PO Q24H 7 Days Qty: 7 0RF prednisone 50 mg tablet 50 mg PO QDAY Qty: 7 0RF albuterol sulfate 90 mcg/actuation HFA aerosol inhaler 2 inh inhalation Q8H PRN (Reason: shortness of breath or wheezing) Qty: 8.5 0RF ipratropium-albuterol 0.5 mg-3 mg(2.5 mg base)/3 mL solution for nebulization 3 ml inhalation Q6H PRN (Reason: shortness of breath) Qty: 90 0RF guaifenesin 100 mg/5 mL liquid 200 mg PO Q4H PRN (Reason: cough) Qty: 473 0RF benzonatate 100 mg capsule 100 mg PO TID Qty: 14 0RF Referrals: Lupillo Zelaya MD [Primary Care Provider] - In 1 week Problem List Clinical Impression: Pneumonia Patient/Caregiver Discharge Instructions Discharge Activity: activity as tolerated Education Materials: ED Pneumonia (Adult) Additional Instructions: Discharge instructions from Dr. Barakat: --After extensive evaluation, there is no very serious injury. Such as brain injury or broken neck or internal organ injury. You have pneumonia. --No physical exertion for 3 days to help rest the lungs. ?No smoking or exposure to smoking or pets or dust or cold air. --Zithromax and cefdinir to kill the germs causing the pneumonia. --Prednisone to help decrease the swelling in the airways. --Albuterol 2 puffs every 4-6 hours for 3 days to help keep the airways open. Then as needed for cough or shortness of breath. --Tylenol with codeine for severe cough for severe pain. --Zofran for nausea/vomiting. Clear liquid diet for 24 hours. Advance slowly as tolerated. --See a private doctor on 09/19/2024 for recheck and further care. Ask to review all test results and official radiology reports, to make sure you receive all necessary follow-ups and monitoring. --Seek immediate medical care with worsening or with any concerns. Print Language: Chinese Stand Alone Forms: [employer] Award Info., Patient Portal Info Letter
--- NOTE | 2024-09-16 20:25 | XR_ITS ---
Examination: CTA chest, with intravenous contrast. CTA abdomen, with intravenous contrast. CTA pelvis, with intravenous contrast. 2-D sagittal and coronal reconstructions. 3-D reconstructions. Date and time of exam: September 16, 2024 at 10:30 PM INDICATIONS: Patient fell today with injury to the chest and abdomen, chest pain abdomen pain CTDI vol (mgy) 14 DLP (MGycm) 985 Technique: Multiple CTA images, 2.0 mm slice thickness, obtained chest, abdomen, pelvis, with the high-resolution 64 slice scanner. 100 cc Isovue 370 is administered intravenously. Sagittal and coronal 2-D reconstructions are obtained. 3-D reconstructions, angiographic images are obtained. 3-D postprocessing, including vascular maximum intensity projections. Low dose protocols were performed. One or more of the following dose reduction techniques were used; automated exposure control, adjustment of the mA and/or KV according to patient size, use of iterative reconstruction technique. Findings: Thoracic aorta pulmonary arteries intact No hemopericardium Atelectasis in the right upper lobe No pneumothorax or hemothorax Manubrium thoracic lumbar vertebral bodies appear intact Ribs appear intact 10 mm right breast nodule image 90 No liver or splenic or renal laceration, no perinephric hematoma Abdominal aorta is intact No free fluid in the abdomen or pelvis Normal appendix Negative for pneumoperitoneum Urinary bladder is intact Fat-containing femoral hernia on the right Hips bones of the pelvis sacral segments intact IMPRESSION: Thoracic aorta pulmonary arteries intact No hemopericardium, pneumothorax, pulmonary contusion or hemothorax No abdominal parenchymal laceration Abdominal aorta intact No free blood in the abdomen or pelvis Osseous structures intact Recommend elective right breast sonography to assess 10 mm right breast nodule
--- NOTE | 2024-09-16 20:25 | XR_ITS ---
Examination: CT maxillofacial, without intravenous contrast. 2-D sagittal reconstructions. 3-D reconstructions. Date and time of exam:September 17, 2019 5:10 PM INDICATIONS: Patient fell today with injury to the face, facial pain CTDI: vol (mGy):21.9 DLP: (mGycm):370 Technique: Multiple axial images of maxillofacial region, 3.0 mm slice thickness. 2-D sagittal and coronal reconstructions. 3-D reconstructions. Low dose protocols were performed. One or more of the following dose reduction techniques were used; automated exposure control, adjustment of the mA and/or KV according to patient size, use of iterative reconstruction technique. Findings: Frontal bone is intact No nasal bone fracture Orbital rims intact. No depression zygomatic arches. Pterygoid plates of maxilla and the mandible is intact Left mandibular dental caries IMPRESSION: No acute facial fracture.
[2024-09-16] MEDS: MORPHINE SULF INJ 10 MG/ML VIAL 5 MG IVP (20:46)
[2024-09-16] MEDS: MethylPREDNISolone SOD SUCC 62.5 MG/ML 2ML VIAL 125 MG IVP (20:46)
[2024-09-16] MEDS: SODIUM CHLORIDE 0.9% 1000 ML 1,000 ML 999 ML IV (20:47)
[2024-09-16] MEDS: KETOROLAC INJ 30 MG/ML VIAL IVP (20:47)
[2024-09-16] MEDS: ONDANSETRON INJ 2 MG/ML INJ 2 ML 4 MG IV (20:47)
[2024-09-16 20:56] VITALS: PULSE 83; RESP 19; O2SAT 99
[2024-09-16] MEDS: ALBUTEROL/IPRATROPIUM (Duoneb) RT SOL 3 ML NEBU 6 ML INH (20:56)
--- NOTE | 2024-09-16 21:00 | PC.NURSE ---
Initial contact with pt.
[2024-09-16 21:06] VITALS: BP 173/107; PULSE 78; RESP 20; O2SAT 99
[2024-09-16 21:36] LABS: Lactate (Lactic Acid) 2.7 mMol/L (0.4-2.0)
[2024-09-16 21:51] LABS: Basophils % (Auto) 0 % (0-2.5); Eosinophils % (Auto) 0 % (0-10); Hematocrit 43.3 % (36.0-46.0); Hemoglobin 15.1 g/dL (12.0-16.0); Immature Granulocytes % (Auto) 1 % (0-0); Immature Granulocytes Auto 0.16 Thou/mm3 (0.00-0.00); Lymphocytes # (Auto) 1.5 Thou/mm3 (1.0-4.8); Lymphocytes % (Auto) 9 % (10-50); Mean Corpuscular HGB Conc 34.9 g/dl (31.0-37.0); Mean Corpuscular Hemoglobin 30.2 pg (25.0-35.0); Mean Corpuscular Volume 87 fL (80-100); Monocytes # (Auto) 0.9 Thou/mm3 (0.0-0.8); Monocytes % (Auto) 5 % (0-12); Neutrophils # (Auto) 13.9 Thou/mm3 (1.8-7.7); Neutrophils % (Auto) 84 % (37-80); Nucleated Red Blood Cell % 0 /100 WBC (0); Platelet Count 248 Thou/mm3 (140-440); RDW Standard Deviation 39.9 fL (36.4-46.3); White Blood Count 16.5 Thou/mm3 (3.6-11.0)
[2024-09-16 22:02] LABS: Alanine Aminotransferase 28 U/L (10-49); Albumin, Serum 4.5 gm/dL (3.4-4.8); Albumin/Globulin Ratio 1.7 (1.2-2.2); Alkaline Phosphatase 115 U/L (46-116); Anion Gap 8 (7-16); Aspartate Amino Transferase 21 U/L (0-34); BUN/Creatinine Ratio 23 Ratio (12-20); Bilirubin,Total 0.7 mg/dL (0.3-1.2); Blood Urea Nitrogen 18 mg/dL (9-23); Calcium 10.3 mg/dL (8.3-10.6); Calcium (Corrected) 10.3 mg/dL (8.5-10.1); Chloride 105 mMol/L (98-107); Creatinine (Component) 0.8 mg/dL (0.6-1.3); Estimated Creatinine Clearance 73.8 mL/min (>60); Globulin 2.7 gm/dL (2.3-3.5); Glucose 106 mg/dL (74-106); Lipase 29 U/L (12-53); Magnesium 2.3 mg/dL (1.6-2.6); Osmolality,Calculated 281 (275-295); Potassium 4.5 mMol/L (3.4-5.1); Sodium 140 mMol/L (136-145); Thyroid Stimulating Hormone 0.25 uIU/mL (0.55-4.78); Total Protein 7.2 gm/dL (5.7-8.2); Troponin I < 0.020 ng/mL (0.0-0.045); eGFR > 60 See Note
[2024-09-16 22:04] LABS: Sed Rate (ESR) 13 mm/hr (0-30)
[2024-09-16 22:09] LABS: D-Dimer 318 ng/mL (<600)
[2024-09-16 22:23] LABS: Collection Type, Urine Clean Catch
[2024-09-16 22:24] LABS: Amylase 23 U/L (30-118); C-Reactive Protein < 0.5 mg/dL (0.0-0.9); Procalcitonin 0.04 ng/ml (0.0-0.49)
[2024-09-16 22:29] LABS: B-Type Natriuretic Peptide < 20 pg/mL (0-100)
[2024-09-16 22:41] LABS: Bilirubin,Urine Negative (Negative); Blood,Urine Negative (Negative); Clarity,Urine Clear (Clear/Hazy); Color,Urine Lt-Yellow (Lt Yel-Yel); Culture Indicated,Urine Not Indicated; Glucose, Urine Negative (Negative); Ketones,Urine Negative (Negative); Leukocyte Esterase,Urine Negative (Negative); Nitrite,Urine Negative (Negative); PH,Urine 5.5 (5.0-7.0); Protein,Urine Negative (Neg - Trace); RBC,Urine 1 /hpf (0-3); Squamous Epithelial Cell,Urine < 1 /hpf (0-5); Urobilinogen,Urine Negative mg/dL (0.0-1.0); WBC,Urine < 1 /hpf (0-5)
[2024-09-16 23:00] VITALS: BP 172/97; PULSE 78; RESP 18; O2SAT 97
[2024-09-16 23:02] LABS: Free T4 (Free Thyroxine) 1.23 ng/dL (0.89-1.76)
[2024-09-17] VITALS: BP 161/105; PULSE 80; RESP 18; TEMP 36.6; O2SAT 96
[2024-09-17] MEDS: MORPHINE SULF INJ 10 MG/ML VIAL 2 MG IVP (00:27)
[2024-09-17 00:35] LABS: Reflex Lactate? Y
[2024-09-17] MEDS: AZITHROMYCIN 250 MG TABLET 500 MG PO (00:45)
[2024-09-17] MEDS: cefTRIAXone 1,000 MG in SODIUM CHLORIDE 0.9% (Popper) 50 ML 100 MG IV (00:45)
[2024-09-17 01:07] LABS: Lactic Acid, 3 HR 2.5 mMol/L (0.4-2.0)
[2024-09-17 01:57] VITALS: BP 165/100; PULSE 89; RESP 19; TEMP 37.1; O2SAT 99
== END 2024-09-17 01:58 | disposition home or self-care (01) ==
PROVIDERS: Physician Assistant; Emergency Provider Emergency Medicine; PCP Family Medicine
DX: J18.9 Pneumonia, unspecified organism (principal); I10 Essential (primary) hypertension; J45.909 Unspecified asthma, uncomplicated; R55 Syncope and collapse; M54.2 Cervicalgia; R10.13 Epigastric pain
CPT/HCPCS: 36415; 70450; 70486; 71045; 71275; 72125; 74174; 76705; 80053; 81001; 82150; 83605; 83690; 83735; 83880; 84145; 84439; 84443; 84484; 85025; 85379; 85652; 86140; 87040; 87400; 87634; 87811; 93005; 94640; 96361; 96374; 96375; 96376; 99285; A4649; A9270; J0696; J1885; J2270; J2405; J2919; J7030; J7050; Q9967

== ENCOUNTER → 2025-03-13 | Outpatient (CLI) | payer OTHER, MEDICAID, SELFPAY ==
--- NOTE | 2025-03-13 | XR_ITS ---
Examination: Shoulder,right, 3 views Technique: Shoulder AP internal rotation, AP external rotation, Y view shoulder, 3 views Exam date and time :March 13, 2025 1115 hours INDICATIONS: Patient fell 6 months ago with injury to the shoulder, shoulder pain. FINDINGS: No shoulder fracture or dislocation. Mild osteoarthritis glenohumeral joint IMPRESSION: Mild osteoarthritis glenohumeral joint
== END | disposition home or self-care (01) ==
PROVIDERS: PCP Student in an Organized Health Care Education/Training Program; Referring Provider Physician Assistant; Visit Provider Physician Assistant
DX: M19.011 Primary osteoarthritis, right shoulder (principal); S49.91XS Unspecified injury of right shoulder and upper arm, sequela; W19.XXXS Unspecified fall, sequela
CPT/HCPCS: 73030

== ENCOUNTER 2025-03-15 08:52 | Emergency (ER) | payer MEDICARE, MEDICAID, SELFPAY ==
[2025-03-15 09:06] VITALS: BP 147/94; PULSE 96; RESP 18; TEMP 36.6; O2SAT 96; BMI 33.6
--- NOTE | 2025-03-15 09:19 | XR_ITS ---
Examination: Shoulder,right, 3 views Technique: Shoulder AP internal rotation, AP external rotation, Y view shoulder, 3 views Exam date and time :March 15, 2025 0924 hours INDICATIONS: Patient fell 6 months ago with injury to the shoulder, shoulder pain. FINDINGS: Early osteophyte arthritis and humeral joint No shoulder or dislocation IMPRESSION: No shoulder fracture or dislocation
[2025-03-15] MEDS: IBUPROFEN TAB 400 MG TABLET 800 MG PO (09:23)
--- NOTE | 2025-03-15 10:16 | EDNOTE_ITS ---
<Statement entered by Marisela Leary MD - 04/03/25 06:05> As co-signing physician, I was present and available for consult prn. I concur with the plan and care as documented by the midlevel provider. Upper Extremity Injury RME/HPI General Chief Complaint: Extremity Injury, Upper Stated Complaint: RIGHT ARM PAIN Time Seen by Provider: 03/15/25 09:19 Arrival date/time: 03/15/25 08:52 64-year-old female presents to the emergency department today for complaints of right arm pain patient reports pain is acute on chronic ongoing for months patient reports no chest pain or shortness of breath no dizziness weakness Limitations: no limitations Related Data Home Medications ?Medication ?Instructions ?Recorded ?Confirmed gabapentin 800 mg tablet 800 mg PO TID 07/12/2005/14 losartan 100 1 tab PO QDAY 07/12/2005/14 mg-hydrochlorothiazide 25 mg tablet medroxyprogesterone 2.5 mg tablet 5 mg PO QDAY 1 05/14/21 trazodone 150 mg tablet 150 mg PO HS 07/12/20 cyclobenzaprine 10 mg tablet 10 mg PO QDAY 05/14/21 Previous Rx's ?Medication ?Instructions ?Recorded ibuprofen 800 mg tablet 800 mg PO TID PRN pain #30 t abs 10/26/20 guaifenesin 100 mg/5 mL oral liquid 200 mg (10 mL) PO Q4H PRN cough 01/25/24 #473 mL benzonatate 100 mg capsule 100 mg PO TID #14 caps 06/30 12/21 albuterol sulfate 2.5 mg/0.5 mL 5 mg inhalation Q6H AK N shortness 08/26/24 solution for nebulization of breath or wheezing #30 ea albuterol sulfate 90 mcg/actuation 2 inh inhalation Q6 H PRN shortness 08/26/24 breath activated powder inhaler of breath or wheezing #1 ea benzonatate 100 mg capsule 100 mg PO BID PRN cough #14 caps 08/26/24 albuterol sulfate 90 mcg/actuation 2 inh inhalation Q8 H PRN shortness 09/14/24 aerosol inhaler of breath or wheezing #8.5 g rakesh ipratropium 0.5 mg-albuterol 3 mg 3 ml inhalation Q6H PRN shortness 09/14/24 (2.5 mg base)/3 mL nebulization of breath #90 mL soln prednisone 50 mg tablet 50 mg PO QDAY #7 tabs acetaminophen 300 mg-codeine 30 mg 2 tab PO Q8H PRN pa in #20 tabs 09/17/24 tablet albuterol sulfate 90 mcg/actuation 2 puff inhalation Q 6H PRN 09/17/24 aerosol inhaler shortness of breath or wheez ing #8.5 grams cefdinir 300 mg capsule 300 mg PO BID #14 caps 09/17 cyclobenzaprine 10 mg tablet 10 mg PO TID PRN muscle s pasm 10 03/15/25 days #30 tab-caps ibuprofen 800 mg tablet 800 mg PO TID PRN pain #30 t abs 03/15/25 Allergies Allergy/AdvReac Type Severity Reaction Status Date / Time No Known Allergies Allergy Verified 09/16/24 18:45 Review of Systems Review of Systems Systems Reviewed: All systems reviewed, normal except as documented Constitutional Constitutional: Reports system reviewed and no additional complaints, except as documented, Denies fever(s) and Denies headache(s) Eyes Eyes: Reports system reviewed and no additional complaints, except as documented and Denies blurry vision ENT Ears, Nose, Mouth, and Throat: Reports system reviewed and no additional complaints, except as documented, Denies headache(s), Denies nasal congestion and Denies nasal discharge Cardiovascular Cardiovascular: Reports system reviewed and no additional complaints, except as documented, Denies chest pain and Denies dyspnea Respiratory Respiratory: Reports system reviewed and no additional complaints, except as documented, Denies chest congestion, Denies cough and Denies dyspnea Gastrointestinal Gastrointestinal: Reports system reviewed and no additional complaints, except as documented and Denies abdominal pain Musculoskeletal Musculoskeletal: Reports system reviewed and no additional complaints, except as documented, Reports arthralgias, Denies deformity, Denies numbness, Reports stiffness and Denies tingling Integumentary/Breasts Skin/Breast: Reports system reviewed and no additional complaints, except as documented and Denies rash Neurologic Neurologic: Reports system reviewed and no additional complaints, except as documented, Reports as per HPI, Denies headache(s), Denies numbness and Denies tingling Past Medical History Past Medical History NEUROLOGIC: Negative Neurological Disorders or Seizures CARDIAC: Positive Cardiac Disorders and Hypertension; Negative Congestive Heart Failure RESPIRATORY: Positive Asthma; Negative Chronic Obstructive Pulmonary Disease (COPD) GASTROINTESTINAL: Positive Gastrointestinal Disorders, Hepatitis and Gastroesophageal Reflux Disease GENITOURINARY: Negative Genitourinary Disorders or Renal Disease REPRODUCTIVE: Positive Previous Pregnancies MUSCULOSKELETAL: Positive Musculoskeletal Disorders, Arthritis and Fibromyalgia; Negative Carpal Tunnel Syndrome ENDOCRINE: Negative Endocrine Disorders, Diabetes Mellitus Type 1 or Diabetes Mellitus Type 2 HEMATOLOGIC: Negative Blood Disorders or Sickle Cell Disease PSYCHO/SOCIAL: Positive Depression and Anxiety OTHER HISTORY: Positive Autoimmune Disease, Shingles and Chicken Pox; Negative Falls, Blood Transfusions, Blood Transfusion Reaction, Anesthesia Reactions, Organ Transplant, MRSA, VRSA or Cancer Family History FAMILY HISTORY: Positive Family Psychiatric Problems, Family Respiratory Disorders, Family Cardiac Disorders, Family Gastrointestinal Problems and Family Surgery; Negative Family Cancer or Family Anesthesia Reaction Surgical History SURGICAL: Negative Cardiac Surgery, Endocrine Surgery, Ear Surgery, Eye Surgery, Throat Surgery, Abdominal Surgery, Joint Replacement, Amputation, Open Reduction Internal Fixation, Arthroscopy, Neurologic Surgery, Tubal Ligation or Organ Transplant Social History SMOKING STATUS: Current every day smoker ED Exam General Limitations: Present no limitations General appearance: Present alert and in no apparent distress Head Head exam: Present atraumatic Eye Eye exam: Present normal appearance, PERRL and EOMI ENT ENT exam: Present normal exam, normal oropharynx and mucous membranes moist Neck Neck exam: Present normal inspection, full ROM and trachea midline Chest Chest inspection: Present normal inspection and symmetric chest wall rise Respiratory Respiratory exam: Present normal lung sounds bilaterally Cardiovascular Cardiovascular exam: Present regular rate, normal rhythm and normal heart sounds Abdominal Exam Abdominal exam: Present soft and normal bowel sounds Extremities Exam Extremities exam: Present normal inspection and full ROM Back Exam Back exam: Present normal inspection and full ROM Neurological Exam Neurological exam: Present alert, oriented X3 and CN II-XII intact Psychiatric Psychiatric exam: Present normal affect and normal mood Skin Skin exam: Present warm, dry, intact and normal color Course Quality Measures none Orders Category Date Time Status XR shoulder RT min 2V Stat Exams 03/15/25 09:19 Completed Ibuprofen Tab [Motrin Tab] Med 03/15/25 09:19 Discontinued 800 mg PO X1 ONE Vital Signs Vital signs: Vital Signs Temperature 97.8 F 03/15/25 09:06 Pulse Rate 96 03/15/25 09:06 Respiratory Rate 18 03/15/25 09:06 Blood Pressure 147/94 H 03/15/25 09:06 Pulse Oximetry (%) 96 03/15/25 09:06 Oxygen Delivery Method Room Air 03/15/25 09:06 o2 sat 96% r.a wnl Extremity Injury MDM Narrative MDM Narrative:: 64-year-old female presents to the emergency department today for complaints of right arm pain patient reports pain is acute on chronic ongoing for months patient reports no chest pain or shortness of breath no dizziness weakness On exam patient well-appearing patient does not appear ill or toxic no acute stress Imaging obtained no acute emergent findings noted Patient failed to mention that she had x-ray done 2 days ago Explained to the patient she should have an outpatient MRI for further evaluation of right shoulder pain for worsening symptoms return immediately Patient data External records reviewed:: [facility] previous records Clinical information provided by:: patient Social determinants that could affect healthcare access:: none Patient has the following chronic illnesses:: See history How is presenting disease/condition affected by chronic disease/condition?: no chronic disease Evaluation data The following diagnostics were reviewed and interpreted by me:: radiology exam(s) Lab and/or radiology exams considered but not ordered:: Radiology obtained Interpretation Summary: Reviewed by me Medications / Prescriptions Medications or Prescriptions considered but not ordered:: Given Medication administrations:: Medication Administration History Discontinued Medications Ibuprofen (Ibuprofen Tab 400 Mg Tablet) 800 mg PO X1 ONE Stop: 03/15/25 09:20 Last Admin: 03/15/25 09:23 Dose: 800 mg Documented By: LEXX Given Consultations Consultation(s) initiated? (list below): No Diagnosis Upper Extremity Injury Differential Diagnosis: other (Shoulder sprain, shoulder fracture) Most likely diagnosis given after review of the tests above:: Shoulder pain from osteoarthritis Admission Indicated Admission indicated?: not indicated Admission Request Was there a request for admission?: No Disposition Plan Disposition Plan: Discharge Discharge Attestation Discharge Attestation: The patient and all family members were given an opportunity to ask questions and understood the discharge instructions. Discharge instructions specifically effects, indications for sooner follow up or return to the emergency department, and the expected course of current diagnosis. Patient condition: Stable Discharge Plan Plan Patient Disposition: HOME (Self Care) Discharge Disposition comment: Stable Prescriptions/Referrals Prescriptions/Med Rec: New cyclobenzaprine 10 mg tablet 10 mg PO TID PRN (Reason: muscle spasm) 10 Days Qty: 30 0RF ibuprofen 800 mg tablet 800 mg PO TID PRN (Reason: pain) Qty: 30 0RF No Action medroxyprogesterone 2.5 mg Tablet 5 mg PO QDAY losartan-hydrochlorothiazide 100-25 mg Tablet 1 tab PO QDAY gabapentin 800 mg Tablet 800 mg PO TID trazodone 150 mg Tablet 150 mg PO HS ibuprofen 800 mg tablet 800 mg PO TID PRN (Reason: pain) Qty: 30 0RF cyclobenzaprine 10 mg tablet 10 mg PO QDAY Patient Comments: TAKE 1 TABLET BY MOUTH AT BEDTIME NEEDED TWICE A DAY albuterol sulfate 90 mcg/actuation aerosol powdr breath activated 2 inh inhalation Q6H PRN (Reason: shortness of breath or wheezing) Qty: 1 0RF benzonatate 100 mg capsule 100 mg PO BID PRN (Reason: cough) Qty: 14 0RF albuterol sulfate 2.5 mg/0.5 mL solution for nebulization 5 mg inhalation Q6H PRN (Reason: shortness of breath or wheezing) Qty: 30 0RF prednisone 50 mg tablet 50 mg PO QDAY Qty: 7 0RF albuterol sulfate 90 mcg/actuation HFA aerosol inhaler 2 inh inhalation Q8H PRN (Reason: shortness of breath or wheezing) Qty: 8.5 0RF ipratropium-albuterol 0.5 mg-3 mg(2.5 mg base)/3 mL solution for nebulization 3 ml inhalation Q6H PRN (Reason: shortness of breath) Qty: 90 0RF guaifenesin 100 mg/5 mL liquid 200 mg PO Q4H PRN (Reason: cough) Qty: 473 0RF benzonatate 100 mg capsule 100 mg PO TID Qty: 14 0RF acetaminophen-codeine 300-30 mg tablet 2 tab PO Q8H MDD 6 PRN (Reason: pain) Qty: 20 0RF albuterol sulfate 90 mcg/actuation HFA aerosol inhaler 2 puff inhalation Q6H PRN (Reason: shortness of breath or wheezing) Qty: 8.5 0RF cefdinir 300 mg capsule 300 mg PO BID Qty: 14 0RF Problem List Clinical Impression: Pain in right shoulder Patient/Caregiver Discharge Instructions Education Materials: ED Arthralgia Additional Instructions: Please follow up with your primary care doctor in the next 24-48hrs for any worsening symptoms return here immediately Print Language: [place] Stand Alone Forms: [employer] Award Info., Work/School Release, Patient Portal Info Letter PA/[employer] Supervising Physician PA/[employer] Supervising Physician: dr leary
== END 2025-03-15 10:32 | disposition home or self-care (01) ==
PROVIDERS: Emergency Provider Nurse Practitioner Primary Care; PCP Physician Assistant
DX: M25.511 Pain in right shoulder (principal)
CPT/HCPCS: 73030; 99283; A9270

== ENCOUNTER → 2025-05-30 | Outpatient (CLI) | payer OTHER, SELFPAY ==
--- NOTE | 2025-05-30 10:14 | XR_ITS ---
EXAMINATION: PA lateral chest 2 views TECHNIQUE: Upright PA lateral chest 2 views Date and time: May 30, 2025, 10:23 a.m. INDICATIONS: Coughing beginning 3 months ago. FINDINGS: Normal heart size Lungs are clear. Prominent osteopenia IMPRESSION:: No active disease
== END | disposition home or self-care (01) ==
DX: R05.9 Cough, unspecified (principal)
CPT/HCPCS: 71046